=== PATIENT | female | born 1990 | race Caucasian/White ===

== ENCOUNTER 2016-12-09 18:18 | Emergency (ER) | payer BC ==
[~2016-12-09] VITALS: Ht 160 cm; Wt 134.0 kg
[~2016-12-09 18:18] MED LIST: ACID75TA6 PO; IBUP800T23 PO; LIPI20TA PO
[2016-12-09 18:22] VITALS: BP 115/77; PULSE 82; RESP 16; TEMP 98.2; O2SAT 98
[2016-12-09] MEDS ORDERED: OMEP40CA2 PO (18:31)
--- NOTE | 2016-12-09 18:47 | PD ---
HPI . Left lateral foot pain for a few hours Chief Complaint: Injury Time Seen by Provider: 18:47 Travel History International Travel<30 days: No Contact w/Intl Traveler<30days: No Traveled to known affect area: No History of Present Illness HPI 26-year-old female with history of hyperlipidemia and GERD here with complaints of left lateral foot pain. Her accident occurred about 3 PM today she was walking and took the wrong step forward and twisted her ankle. She is actually not complaining of ankle pain and actually complaining of left lateral foot pain. She does have some slight discoloration and limited range of motion. Pain is 8/10 with movement. She has no other complaints. She denies any loss of consciousness or syncopal episode. She is accompanied by her mother. PFSH Past Medical History High Cholesterol: Yes Diminished Hearing: No GERD: Yes Immunizations Current: Yes Tetanus Vaccination: < 5 Years Influenza Vaccination: No ?: Not LMP: 12/07/2016 Menopausal: No : 0 Para: 0 Miscarriage: 0 : 0 Past Surgical History Appendectomy: Yes Social History Alcohol Use: Yes (Occ.) Tobacco Use: No Substance Use: No Allergies-Medications (Allergen,Severity, Reaction): Coded Allergies: Penicillin (Verified Allergy, Severe, Rash, 12/09/16) Reported Meds & Prescriptions Reported Meds & Active Scripts Active Reported Omeprazole 40 Mg Cap 40 Mg PO DAILY Review of Systems General / Constitutional: No: Fever Eyes: No: Visual changes HENT: No: Headaches Cardiovascular: No: Chest Pain or Discomfort Respiratory: No: Shortness of Breath Gastrointestinal: No: Abdominal Pain Genitourinary: No: Dysuria Musculoskeletal: Positive: Pain (left foot pain) Skin: No Rash Neurologic: No: Weakness Psychiatric: No: Depression Endocrine: No: Polydipsia Hematologic/Lymphatic: No: Easy Bruising Physical Exam Narrative GENERAL: AAO x 3, no acute distress, Well-nourished, well-developed patient. SKIN: Warm and dry. No visible rashes or bruising. HEAD: Normocephalic and atraumatic. EYES: No scleral icterus. No injection or drainage. ENT: No nasal drainage noted. Mucous membranes pink. Airway patent. NECK: Supple, trachea midline. No JVD. CARDIOVASCULAR: Regular rate and rhythm without murmurs, gallops, or rubs. RESPIRATORY: Breath sounds equal bilaterally. No accessory muscle use. No rhonchi or rales. GASTROINTESTINAL: Abdomen soft, non-tender, nondistended. EXTREMITIES: No cyanosis or edema. + point tenderness to left lateral foot BACK: Nontender without obvious deformity. No CVA tenderness. PSYCH: AAO x 3, normal affect. Data Data Last Documented VS Vital Signs Date Time Temp Pulse Resp B/P Pulse Ox O2 Delivery O2 Flow Rate FiO2 12/09/16 18:22 98.2 82 16 115/77 98 Orders Foot, Limited (2vws) (12/09/16 18:51) Ibuprofen (Motrin) (12/09/16 19:15) MDM Medical Decision Making Medical Screen Exam Complete: Yes Emergency Medical Condition: Yes Medical Record Reviewed: Yes Differential Diagnosis Foot sprain, foot fracture, foot contusion Narrative Course 26-year-old female with history of hyperlipidemia and GERD here with complaints of left lateral foot pain. Her accident occurred about 3 PM today she was walking and took the wrong step forward and twisted her ankle. She is actually not complaining of ankle pain and actually complaining of left lateral foot pain. She does have some slight discoloration and limited range of motion. Pain is 8/10 with movement. She has no other complaints. She denies any loss of consciousness or syncopal episode. She is accompanied by her mother. Patient seen and examined. There is some left lateral foot tenderness. I will check an x-ray to make sure there is no acute fracture. I think this is more than likely a sprain. Patient given ibuprofen for pain control. Last 24 hours Impressions Foot X-Ray 12/09/16 6847 Signed Impressions: Service Date/Time: Friday, December 09, 2016 18:53 - CONCLUSION: Unremarkable limited examination of the left foot. Phillip Stauffer MD Patient verbalized understanding of instructions, questions were answered, and thanked me for their care. I advised them if their condition worsens, please return to the nearest emergency room for further care. Diagnosis Primary Impression: Sprain of foot, left Qualified Code: S93.602A - Sprain of foot, left, initial encounter Patient Instructions: Foot Sprain (ED), General Instructions Additional Instructions: Please return to emergency department if your symptoms return or worsen. Follow up with your primary care provider. Take medications as prescribed. Take Tylenol or Motrin as needed for pain. Med/Other Pt SpecificInfo: No Change to Meds Disposition: 01 DISCHARGE HOME Condition: Stable Olga Lovelace Dec 09, 2016 18:47
--- NOTE | 2016-12-09 19:08 | RADHPO ---
EXAM DATE/TIME: 12/09/2016 18:53 [facility] COMPARISON: No previous studies available for comparison. INDICATIONS : Left foot pain. Patient states she tripped today and missed a step. MEDICAL HISTORY : None. SURGICAL HISTORY : None. ENCOUNTER: Initial ACUITY: 1 day PAIN SCORE: 8/10 LOCATION: Left foot. FINDINGS: Two view examination of the left foot demonstrates no soft tissue swelling, dislocation, or fracture. The calcaneus is intact. Bony mineralization is normal. CONCLUSION: Unremarkable limited examination of the left foot. Phillip Stauffer MD on December 09, 2016 at 19:07 Board Certified Radiologist. This report was verified electronically.
[2016-12-09] MEDS ORDERED: IBUPROFEN 800 MG TAB PO ONE (19:15)
== END 2016-12-09 19:29 | disposition home or self-care (01) ==
LOC: PHEFT 18:18
DX: S93.602A Unspecified sprain of left foot, initial encounter (principal); E78.00 Pure hypercholesterolemia, unspecified; X50.1XXA Overexertion from prolonged static or awkward postures, initial encounter; Y99.8 Other external cause status
CPT/HCPCS: 73620; 99283; E0113

== ENCOUNTER 2017-01-12 13:51 | Emergency (ER) | payer BC ==
[~2017-01-12] VITALS: Ht 172.7 cm; Wt 137.0 kg
[~2017-01-12 13:51] MED LIST changes: -ACID75TA6 PO; -IBUP800T23 PO; -LIPI20TA PO; +OMEP40CA2 PO
[2017-01-12 13:59] VITALS: BP 135/89; PULSE 66; RESP 14; TEMP 98.1; O2SAT 96
--- NOTE | 2017-01-12 14:17 | PD ---
HPI Chief Complaint: GI Complaint Time Seen by Provider: 14:13 Travel History International Travel<30 days: No Contact w/Intl Traveler<30days: No Traveled to known affect area: No History of Present Illness HPI 26-year-old female came to the emergency room with multiple complains like nausea, craving salt, vomiting earlier this month, abdominal discomfort. Upon asking if she could be and she said there was a chance although her period started yesterday. Vital signs were completely stable. She otherwise claims to be a healthy person. Her next appointment with a primary care's next Sunday. Patient came here to be checked was going on. [facility] Past Medical History Narrative Medical List of her past medical, surgical, social and family history was reviewed from the nursing note. High Cholesterol: Yes Diminished Hearing: No GERD: Yes Immunizations Current: Yes Tetanus Vaccination: < 5 Years Influenza Vaccination: No ?: Unknown LMP: 01/11/17 Menopausal: No : 0 Para: 0 Miscarriage: 0 : 0 Past Surgical History Appendectomy: Yes Social History Alcohol Use: Yes (Occ.) Tobacco Use: No Substance Use: No Allergies-Medications (Allergen,Severity, Reaction): Coded Allergies: Penicillin (Verified Allergy, Severe, Rash, 01/12/17) Comments List of her allergies reviewed from the nursing note. Reported Meds & Prescriptions Reported Meds & Active Scripts Active Zofran Odt (Ondansetron Odt) 4 Mg Tab 4 Mg SL Q6HR PRN Narrative Medication List of her home medications reviewed from the nursing note. Review of Systems Except as stated in HPI: all other systems reviewed are Neg Physical Exam Narrative GENERAL: Awake, alert, morbidly obese, no obvious distress SKIN: Focused skin assessment warm/dry. HEAD: Atraumatic. Normocephalic. EYES: Pupils equal and round. No scleral icterus. No injection or drainage. ENT: No nasal bleeding or discharge. Mucous membranes pink and moist. NECK: Trachea midline. No JVD. CARDIOVASCULAR: Regular rate and rhythm. No murmur appreciated. RESPIRATORY: No accessory muscle use. Clear to auscultation. Breath sounds equal bilaterally. GASTROINTESTINAL: Abdomen soft, non-tender, nondistended. Hepatic and splenic margins not palpable. MUSCULOSKELETAL: No obvious deformities. No clubbing. No cyanosis. No edema. NEUROLOGICAL: Awake and alert. No obvious cranial nerve deficits. Motor grossly within normal limits. Normal speech. PSYCHIATRIC: Appropriate mood and affect; insight and judgment normal. Data Data Last Documented VS Orders Urinalysis - C+S If Indicated (01/12/17 14:25) Ed Urine Pregnancytest Poc (01/12/17 14:25) Labs [facility] Medical Decision Making Medical Screen Exam Complete: Yes Emergency Medical Condition: Yes Medical Record Reviewed: Yes Differential Diagnosis , dehydration Narrative Course 3:07 PM patient was negative for urine . UA report came back and within normal limit except for occult blood which could be from her period. I' m comfortable discharging her home. She has to follow up with her primary care next Sunday and if she still concerned could have outpatient blood work. Procedures EKG Prior to Arrival: No Diagnosis Primary Impression: Nausea Referrals: Primary Care Physician 1 week Additional Instructions: Please return to the ER if the condition worsens or any other new concerns. Otherwise follow-up with your primary care as per the appointment next week. Take the medication as per the prescription direction. Med/Other Pt SpecificInfo: Prescription(s) given Scripts Ondansetron Odt (Zofran Odt)4 Mg Tab4 Mg SL Q6HR PRN (Nausea/Vomiting) #15 TAB Ref 0 Prov:Vladimir Willett MD 01/12/17 Disposition: 01 DISCHARGE HOME Condition: Stable Vladimir Willett MD Jan 12, 2017 14:17 Urine Squamous Epithelial 0-5 /hpf Cells Microscopic Urinalysis Comment CULT NOT INDICATED [facility] Medical Decision Making Medical Screen Exam Complete: Yes Emergency Medical Condition: Yes Medical Record Reviewed: Yes Differential Diagnosis , dehydration Narrative Course 3:07 PM patient was negative for urine . UA report came back and within normal limit except for occult blood which could be from her period. I' m comfortable discharging her home. She has to follow up with her primary care next Sunday and if she still concerned could have outpatient blood work. Procedures EKG Prior to Arrival: No Diagnosis Primary Impression: Nausea Referrals: Primary Care Physician 1 week Additional Instructions: Please return to the ER if the condition worsens or any other new concerns. Otherwise follow-up with your primary care as per the appointment next week. Take the medication as per the prescription direction. Med/Other Pt SpecificInfo: Prescription(s) given Scripts Ondansetron Odt (Zofran Odt)4 Mg Tab4 Mg SL Q6HR PRN (Nausea/Vomiting) #15 TAB Ref 0 Prov:Vladimir Willett MD 01/12/17 Disposition: 01 DISCHARGE HOME Condition: Stable Vladimir Willett MD Jan 12, 2017 14:17
[2017-01-12 14:46] LABS: BLOOD, URINE LARGE (NEG); GLUCOSE,URINE NEG (NEG); KETONE, URINE NEG (NEG); NITRITE,URINE NEG (NEG); PH, URINE 6.5 (5.0-8.5)
[2017-01-12 14:59] LABS: URINE COLOR YELLOW (YELLW/STRAW)
[2017-01-12 15:00] LABS: COMMENT (UR) CULT NOT INDICATED; CULTURE IF INDICATED CULT NOT INDICATED; SQUAMOUS EPITHELIAL CELL URINE 0-5 /hpf (0-5)
[2017-01-12] MEDS ORDERED: ZOFR4TAB3 SL (15:09)
[2017-01-12 15:15] VITALS: BP 128/82; PULSE 68; RESP 16; O2SAT 95
== END 2017-01-12 15:15 | disposition home or self-care (01) ==
LOC: PHED 13:51
DX: R11.0 Nausea (principal); R10.9 Unspecified abdominal pain; E78.00 Pure hypercholesterolemia, unspecified; K21.9 Gastro-esophageal reflux disease without esophagitis
CPT/HCPCS: 81001; 84703; 99284

== ENCOUNTER 2017-02-12 11:04 | Emergency (ER) | payer BC ==
[~2017-02-12] VITALS: Ht 172.7 cm; Wt 136.8 kg
[~2017-02-12 11:04] MED LIST changes: -OMEP40CA2 PO; +ZOFR4TAB3 SL
[2017-02-12 11:08] VITALS: BP 129/61; PULSE 82; RESP 16; TEMP 98.4; O2SAT 98
--- NOTE | 2017-02-12 11:29 | PD ---
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 She states her last menstrual cycle was about the fifth of last month. She states she's having intermittent lower abdominal pain but denies other complaints. She is concerned she got an STD. Quality is white. Severity is 3 days. PFSH Past Medical History High Cholesterol: Yes Diminished Hearing: No GERD: Yes Immunizations Current: Yes Tetanus Vaccination: < 5 Years ?: Not LMP: 01/11/17 Menopausal: No : 0 Para: 0 Miscarriage: 0 : 0 Past Surgical History Appendectomy: Yes Social History Alcohol Use: Yes (Occ.) Tobacco Use: No Substance Use: No Allergies-Medications (Allergen,Severity, Reaction): Coded Allergies: Penicillin (Verified Allergy, Severe, Rash, 02/12/17) Reported Meds & Prescriptions Reported Meds & Active Scripts Active No Active Prescriptions or Reported Medications Review of Systems Except as stated in HPI: all other systems reviewed are Neg Physical Exam Narrative GENERAL: Well-nourished, well-developed patient. Well-appearing SKIN: Warm and dry. HEAD: Normocephalic and atraumatic. EYES: No injection or drainage. ENT: No nasal drainage noted. NECK: Supple, trachea midline. CARDIOVASCULAR: Regular rate and rhythm RESPIRATORY: No increased effort. No accessory muscle use. GASTROINTESTINAL: Abdomen soft, non-tender, nondistended. GENITOURINARY with cotton ginner after permission: Normal external genitalia without lesions or erythema. Vaginal vault small amount of white drainage. Cervical os was closed with small amount of white drainage. No cervical motion tenderness. Uterus nontender. Bilateral adnexa nontender NEUROLOGICAL: Awake and alert. Motor and sensory grossly within normal limits. Normal speech. Data Data Last Documented VS Vital Signs Date Time Temp Pulse Resp B/P Pulse Ox O2 Delivery O2 Flow Rate FiO2 02/12/17 11:08 98.4 82 16 129/61 98 Orders Urinalysis - C+S If Indicated (02/12/17 11:11) Ed Urine Pregnancytest Poc (02/12/17 11:11) Gc And Chlamydia Pcr (02/12/17 11:20) Wet Prep Profile (02/12/17 11:20) Azithromycin Powd Pack (Zithromax Powd P (02/12/17 11:30) Metronidazole (Flagyl) (02/12/17 12:00) Labs Laboratory Tests Test 02/12/17 02/12/17 11:15 11:20 Urine Collection Type VOIDED Urine Color YELLOW Urine Turbidity CLEAR Urine pH 7.5 Urine Specific [place] 1.020 Urine Protein NEG mg/dL Urine Glucose (UA) NEG mg/dL Urine Ketones NEG mg/dL Urine Occult Blood TRACE Urine Nitrite NEG Urine Bilirubin NEG Urine Leukocyte Esterase NEG Urine WBC 0-2 /hpf Urine Squamous Epithelial 0-5 /hpf Cells Urine Bacteria FEW /hpf Urine Trichomonas RARE Microscopic Urinalysis Comment CULT NOT INDICATED Clue Cells (Wet Prep) NONE SEEN Vaginal Trichomonas (Wet Prep) PRESENT Vaginal Yeast (Wet Prep) NONE SEEN MDM Medical Decision Making Medical Screen Exam Complete: Yes Emergency Medical Condition: Yes Medical Record Reviewed: Yes (past history confirmed) Interpretation(s) test is negative Trichomonas is positive UA without UTI Differential Diagnosis STD, UTI, cyst, Narrative Course Will check wet prep and gonorrhea and chlamydia, urinalysis, test is negative, will treat with 2 g of azithromycin given penicillin allergy to cover for gonorrhea and chlamydia and await other testing Trichomonas is positive, given Flagyl 2 g here, Patient denies any new complaints, all questions answered. Patient knows that follow up is incumbent on them and to return to the emergency room immediately if new or worsening symptoms develop. Patient given strict return precautions, vitals reviewed and are normal, agrees to further workup as an outpatient. 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
[2017-02-12] MEDS ORDERED: AZITHROMYCIN PWD FOR SUSP 1 GM PACKET PO ONE (11:30)
[2017-02-12 11:37] LABS: BLOOD, URINE TRACE (NEG); GLUCOSE,URINE NEG (NEG); KETONE, URINE NEG (NEG); NITRITE,URINE NEG (NEG); PH, URINE 7.5 (5.0-8.5)
[2017-02-12 11:43] LABS: METHOD OF COLLECTION VOIDED; URINE COLOR YELLOW (YELLW/STRAW)
[2017-02-12 11:44] LABS: BACTERIA, URINE FEW /hpf; COMMENT (UR) CULT NOT INDICATED; CULTURE IF INDICATED CULT NOT INDICATED; SQUAMOUS EPITHELIAL CELL URINE 0-5 /hpf (0-5); WBC, URINE 0-2 /hpf (0-5)
[2017-02-12] MEDS ORDERED: metroNIDAZOLE 500 MG TAB PO ONE (12:00)
[2017-02-12 16:00] LABS: CHLAMYDIA PCR NOT DETECTED (NOT DETECT); NEISSERIA PCR NOT DETECTED (NOT DETECT)
== END 2017-02-12 12:10 | disposition home or self-care (01) ==
LOC: PHED 11:04
DX: A59.01 Trichomonal vulvovaginitis (principal)
CPT/HCPCS: 81001; 84703; 87210; 87491; 87591; 99283

== ENCOUNTER 2017-05-07 13:15 | Emergency (ER) | payer SELFPAY ==
[~2017-05-07] VITALS: Ht 172.7 cm; Wt 139.0 kg
[2017-05-07 13:17] VITALS: BP 146/70; PULSE 72; RESP 16; TEMP 98.1; O2SAT 95
--- NOTE | 2017-05-07 14:34 | PD ---
HPI Chief Complaint: Lump, Cyst, Hernia Time Seen by Provider: 14:17 Travel History International Travel<30 days: No Contact w/Intl Traveler<30days: No Traveled to known affect area: No History of Present Illness HPI 26 yo female reports approx 1 day of left occipital scalp pain and swelling. She 's had generalized cephalgia since yesterday as well. The scalp area of swelling is slightly more tender on palpation. A generalized sensation of weakness and fatigue is reported. No fever/chills. Pt denies recent trauma or similar prior pain/lesions. PFSH Past Medical History High Cholesterol: Yes Diminished Hearing: No GERD: Yes Immunizations Current: Yes ?: Not Menopausal: No : 0 Para: 0 Miscarriage: 0 : 0 Past Surgical History Appendectomy: Yes Social History Alcohol Use: Yes (Occ.) Tobacco Use: No Substance Use: No Allergies-Medications (Allergen,Severity, Reaction): Coded Allergies: Penicillin (Verified Allergy, Severe, Rash, 02/12/17) Reported Meds & Prescriptions Reported Meds & Active Scripts Active No Active Prescriptions or Reported Medications Review of Systems Except as stated in HPI: all other systems reviewed are Neg General / Constitutional: No: Fever Physical Exam Narrative GENERAL: 26 yo F, WNWD, NAD, pleasant SKIN: Warm and dry. HEAD: Atraumatic. Normocephalic. Along the L occipital scalp there is an area of approximately 15mm of raised tissue. No erythema or fluctuance is observed. No warmth. There is trace TTP in the area. EYES: Pupils equal and round. No scleral icterus. No injection or drainage. ENT: No nasal bleeding or discharge. Mucous membranes pink and moist. NECK: Trachea midline. No JVD. CARDIOVASCULAR: Regular rate and rhythm. RESPIRATORY: No accessory muscle use. Clear to auscultation. Breath sounds equal bilaterally. GASTROINTESTINAL: Abdomen soft, non-tender, nondistended. Hepatic and splenic margins not palpable. MUSCULOSKELETAL: Extremities without clubbing, cyanosis, or edema. No obvious deformities. NEUROLOGICAL: Awake and alert. No obvious cranial nerve deficits. Motor grossly within normal limits. Five out of 5 muscle strength in the arms and legs. Normal speech. PSYCHIATRIC: Appropriate mood and affect; insight and judgment normal. Data Data Last Documented VS Vital Signs Date Time Temp Pulse Resp B/P Pulse Ox O2 Delivery O2 Flow Rate FiO2 05/07/17 14:44 70 16 136/70 96 Room Air 05/07/17 13:17 98.1 VS reviewed MDM Medical Decision Making Medical Screen Exam Complete: Yes Emergency Medical Condition: Yes Medical Record Reviewed: Yes Differential Diagnosis cellulitis, sebaceous cyst, abscess, follicular cyst, ganglion cyst, ingrown hair Narrative Course The area of swelling is very subtle, almost imperceptible if not for tenderness during the exam. In the absence of erythema warmth induration an infectious process is considered less likely. A cystic structure is not entirely excluded. With the lesion having been first noticed just yesterday etiology at this point is considered most likely benign. Unfortunately within seconds of the discussion of the diagnosis, or absence thereof, the patient's company said , "So we're just playing a guessing game. You came here for nothing." Pt's company was concerned that the scalp lesion may reflect an intracranial cyst. "So you're not going to do a CT scan" she states. We spent about five additional minutes discussing potential diagnoses and symptoms c/w intracranial mass. The patient and company were ultimately offered a CT scan of the brain however it was stated that in so doing no added diagnostic benefit would be expected. The patient elected to defer the head CT. Return precautions discussed in detail. Unfortunately one of the company's relative's had a intracranial cystic structure that was undiagnosed after a few visits and a high degree of skepticism accompanied the patient's visit. Unfortunately patient and company may be unsatisfied with this visit despite all reasonable attempts provide appropriate care while meeting their expectations. Diagnosis Primary Impression: Superficial swelling of scalp Referrals: Primary Care Physician 2 days Additional Instructions: PLEASE RETURN TO THE ER IF YOU DEVELOP FEVER OR IF THE AREA OF SWELLING INCREASES IN SIZE, BECOMES WARM/HOT TO TOUCH OR MORE PAINFUL. PLEASE BE ADVISED THE AN INTRACRANIAL MASS OR CYST WOULD CAUSE SEIZURES AND/OR A FOCAL MOTOR WEAKNESS IN ADDITION TO CHRONIC HEADACHES, WHICH WOULD MOST LIKELY BE WORSE IN THE MORNINGS. You have a choice when it comes to health care, and we are glad that you chose [facility]. Hopefully, we have met your expectations on today's visit. You are welcome to return to [facility] at any time, as we are committed to meeting the health care needs of our community. Med/Other Pt SpecificInfo: No Change to Meds Scripts No Active Prescriptions or Reported Meds Disposition: 01 DISCHARGE HOME Condition: Stable Oswaldo Garcia MD May 07, 2017 14:34
[2017-05-07 14:44] VITALS: BP 136/70; PULSE 70; RESP 16; O2SAT 96
== END 2017-05-07 14:43 | disposition home or self-care (01) ==
LOC: PHED 13:15
DX: R22.0 Localized swelling, mass and lump, head (principal); R51 Headache; R53.1 Weakness; R53.83 Other fatigue; E78.00 Pure hypercholesterolemia, unspecified; Z87.19 Personal history of other diseases of the digestive system
CPT/HCPCS: 99282

== ENCOUNTER 2017-07-25 16:14 | Emergency (ER) | payer SELFPAY ==
[~2017-07-25] VITALS: Ht 172.7 cm; Wt 137.9 kg
[2017-07-25 16:28] VITALS: BP 134/63; PULSE 97; RESP 16; TEMP 99.1; O2SAT 98
[2017-07-25 17:37] LABS: BLOOD, URINE TRACE (NEG); GLUCOSE,URINE NEG (NEG); KETONE, URINE NEG (NEG); NITRITE,URINE NEG (NEG)
[2017-07-25 17:46] LABS: URINE COLOR YELLOW (YELLW/STRAW)
[2017-07-25 17:47] LABS: MUCUS URINE FEW /lpf (OCC)
[2017-07-25 17:48] LABS: COMMENT (UR) CULT NOT INDICATED; CULTURE IF INDICATED CULT NOT INDICATED; RBC, URINE 0-3 /hpf (0-3); SQUAMOUS EPITHELIAL CELL URINE > 8 /hpf (0-5); WBC, URINE 0-2 /hpf (0-5)
[2017-07-25] MEDS ORDERED: CLIN1CAP6 PO (18:14)
--- NOTE | 2017-07-25 18:15 | PD ---
HPI . Upper respiratory symptoms Chief Complaint: Cold / Flu Symptoms Time Seen by Provider: 16:41 Travel History International Travel<30 days: No Contact w/Intl Traveler<30days: No Traveled to known affect area: No History of Present Illness HPI 27-year-old female presents to emergency department for evaluation of right- sided earache 3-4 days, body aches, sore throat and malaise. Patient is unsure she's been running any fevers but feels chills and malaise. Patient does not take any daily medication. She has no major medical history except for frequent bouts of strep throat. Patient denies any cough, shortness of breath, chest pain, abdominal pain, nausea, vomiting or diarrhea. However patient states she's been experiencing dysuria for a couple days. PFSH Past Medical History Medical History: Denies Significant Hx High Cholesterol: Yes Diminished Hearing: No GERD: Yes Immunizations Current: Yes Tetanus Vaccination: < 5 Years Influenza Vaccination: No ?: Not LMP: 07/05/17 Menopausal: No : 0 Para: 0 Miscarriage: 0 : 0 Past Surgical History Appendectomy: Yes Social History Alcohol Use: Yes (Occ.) Tobacco Use: No Substance Use: No Allergies-Medications (Allergen,Severity, Reaction): Coded Allergies: penicillin G (Unverified Allergy, Severe, Rash, 07/25/17) Reported Meds & Prescriptions Reported Meds & Active Scripts Active No Active Prescriptions or Reported Medications Review of Systems Except as stated in HPI: all other systems reviewed are Neg Physical Exam Narrative GENERAL: Well-nourished, well-developed 27-year-old female patient in no acute distress. SKIN: Focused skin assessment warm/dry. HEAD: Normocephalic. Atraumatic. EYES: No scleral icterus. No injection or drainage. ENT: Mucosa pink and moist. Airway patent. Nasal turbinates appear mildly hypertrophic without nasal blood, purulent drainage or septal hematoma. EARS: Bilateral pinnae and external canals appear within normal limits. Bilateral tympanic membranes mildly erythematous without dullness or perforation. THROAT: Significant pharyngeal injection, exudates and tonsillar hypertrophy. Airway is patent. NECK: Supple, trachea midline. No JVD or lymphadenopathy. CARDIOVASCULAR: Regular rate and rhythm without murmurs, gallops, or rubs. RESPIRATORY: Breath sounds equal bilaterally. No accessory muscle use. GASTROINTESTINAL: Abdomen soft, non-tender, nondistended. MUSCULOSKELETAL: No cyanosis, or edema. BACK: Nontender without obvious deformity. No CVA tenderness. Data Data Last Documented VS Vital Signs Date Time Temp Pulse Resp B/P (MAP) Pulse Ox O2 Delivery O2 Flow Rate FiO2 07/25/17 16:28 99.1 97 16 134/63 (86) 98 Orders Orders Group A Rapid Strep Screen (07/25/17 16:52) Urinalysis - C+S If Indicated (07/25/17 17:11) Labs Laboratory Tests Test 07/25/17 17:12 Urine Color YELLOW Urine Turbidity SLIGHT Urine pH 6.0 Urine Specific [place] 1.034 Urine Protein TRACE mg/dL Urine Glucose (UA) NEG mg/dL Urine Ketones NEG mg/dL Urine Occult Blood TRACE Urine Nitrite NEG Urine Bilirubin NEG Urine Leukocyte Esterase NEG Urine RBC 0-3 /hpf Urine WBC 0-2 /hpf Urine Squamous Epithelial Cells > 8 /hpf Urine Mucus FEW /lpf Microscopic Urinalysis Comment CULT NOT INDICATED MDM Medical Decision Making Medical Screen Exam Complete: Yes Emergency Medical Condition: Yes Differential Diagnosis The frontal diagnoses include but not limited to upper respiratory infection, otitis media, sinusitis, pharyngitis, tonsillitis Narrative Course 27-year-old female presents emergency department for evaluation of sore throat, right earache and dysuria for a couple days. Rapid strep and UA ordered and pending. Rapid strep is positive. UA shows no acute abnormality. Patient will be discharged home with antibiotics for strep throat and instructions to follow-up with the primary care. Diagnosis Primary Impression: Streptococcal pharyngitis Patient Instructions: General Instructions, Pharyngitis (ED) Additional Instructions: Please return to emergency department if your symptoms return or worsen. Follow up with your primary care provider. Take medications as prescribed. Med/Other Pt SpecificInfo: Prescription(s) given Scripts Clindamycin (Clindamycin) 300 Mg Cap 300 MG PO TID for Infection for 10 Days, #21 CAP 0 Refills Prov: DebbieVaishnavi 07/25/17 Disposition: 01 DISCHARGE HOME Condition: Stable Vaishnavi Lewis Jul 25, 2017 18:15
== END 2017-07-25 18:32 | disposition home or self-care (01) ==
LOC: PHEFT 16:14
DX: J02.0 Streptococcal pharyngitis (principal); B95.0 Streptococcus, group A, as the cause of diseases classified elsewhere; R30.0 Dysuria
CPT/HCPCS: 81001; 87880; 99283

== ENCOUNTER 2017-11-05 19:33 | Emergency (ER) | payer SELFPAY ==
[~2017-11-05] VITALS: Ht 172.7 cm; Wt 145.0 kg
[~2017-11-05 19:33] MED LIST changes: +CLIN300C5 PO; -ZOFR4TAB3 SL
[2017-11-05 20:35] VITALS: BP 152/68; PULSE 95; RESP 18; TEMP 100; O2SAT 97
[2017-11-05 22:09] VITALS: TEMP 102.5
--- NOTE | 2017-11-05 22:27 | PD ---
HPI Chief Complaint: Cold / Flu Symptoms Time Seen by Provider: 21:59 Travel History International Travel<30 days: No Contact w/Intl Traveler<30days: No Traveled to known affect area: No History of Present Illness HPI The patient is a 27-year-old female that complains of a cough, congestion and sore throat for 2 days. The patient has a low-grade fever at home. She does have some myalgias with an 8/10 in pain. She does have some nausea without vomiting. She denies any diarrhea. She does not smoke. PFSH Past Medical History High Cholesterol: Yes Diminished Hearing: No GERD: Yes Immunizations Current: Yes Sleep Apnea: Yes Tetanus Vaccination: < 5 Years Influenza Vaccination: No ?: Not LMP: 1-18 Menopausal: No : 0 Para: 0 Miscarriage: 0 : 0 Past Surgical History Appendectomy: Yes Social History Alcohol Use: Yes (Occ.) Tobacco Use: No Substance Use: No Allergies-Medications (Allergen,Severity, Reaction): Coded Allergies: penicillin G (Unverified Allergy, Severe, Rash, 11/05/17) Reported Meds & Prescriptions Reported Meds & Active Scripts Active No Active Prescriptions or Reported Medications Review of Systems Except as stated in HPI: all other systems reviewed are Neg Physical Exam Narrative GENERAL: Well-nourished, alert and oriented, obese patient in no respiratory distress. Repeated temperature is 102.5 and the blood pressure 152/68 but the rest the vital signs are normal.. SKIN: Focused skin assessment warm/dry. No skin rash is seen. HEAD: Normocephalic. EYES: No scleral icterus. No injection or drainage. NECK: Supple, trachea midline. No JVD or lymphadenopathy. CARDIOVASCULAR: Regular rate and rhythm without murmurs, gallops, or rubs. RESPIRATORY: Breath sounds equal bilaterally. No accessory muscle use. Scattered wheezes are heard bilaterally. GASTROINTESTINAL: Abdomen soft, non-tender, nondistended. MUSCULOSKELETAL: No cyanosis, or edema. BACK: Nontender without obvious deformity. No CVA tenderness. ENT: The tympanic membranes are clear and the throat is slightly red without exudate or abscess. Data Data Last Documented VS Vital Signs Date Time Temp Pulse Resp B/P (MAP) Pulse Ox O2 Delivery O2 Flow Rate FiO2 11/05/17 22:09 102.5 11/05/17 20:35 95 18 152/68 (96) 97 Orders Orders Influenzae A/B Antigen (11/05/17 21:56) Chest, Pa & Lat (11/05/17 22:17) Acetaminophen (Tylenol) (11/05/17 22:30) Ketorolac Inj (Toradol Inj) (11/05/17 22:30) MDM Medical Decision Making Medical Screen Exam Complete: Yes Emergency Medical Condition: Yes Medical Record Reviewed: Yes Interpretation(s) The chest x-ray shows no acute cardiopulmonary disease. The influenza A/B antigen is negative for flu a and flu B antigen. Differential Diagnosis Viral upper respiratory infection, pneumonia, bronchitis, flu syndrome Narrative Course The patient appears to have a viral upper respiratory infection. The flu test is negative and she has not have a pneumonia. She does have bronchospasm and likely has a bronchitis. The bronchospasm is minimal. Diagnosis Primary Impression: Bronchitis with bronchospasm Additional Instructions: The cough syrup as 10 cc every 4-6 hours as needed. It can make you sleepy and sometimes can make you nauseated. The Compazine is for nausea and it can make you sleepy as well. Both the cough syrup and the Compazine helped the cough. Med/Other Pt SpecificInfo: Prescription(s) given Scripts Mhdhnrzyqtrnnsu-Trbaaab-Zzegohyhhov Liq (Guaifenesin DAC Liq) 30-10-100 Mg/5 Ml Soln 10 ML PO Q4H Y for COUGH AND/OR COLD SYMPTOMS, #1 BOTTLE 0 Refills Prov: Rainer Pisano MD 11/05/17 Prochlorperazine Maleate (Prochlorperazine Maleate) 10 Mg Tab 10 MG PO Q6H Y for NAUSEA OR VOMITING, #30 TAB 0 Refills Prov: Rainer Pisano MD 11/05/17 Disposition: 01 DISCHARGE HOME Condition: Stable Rainer Pisano MD Nov 05, 2017 22:27
[2017-11-05] MEDS ORDERED: ACETAMINOPHEN 325 MG TAB PO ONE (22:30)
[2017-11-05] MEDS ORDERED: KETOROLAC TROMETHAMINE 60 MG/2 ML (IM) VIAL IM ONE (22:30)
--- NOTE | 2017-11-05 22:48 | RADRPT ---
EXAM DATE/TIME: 11/05/2017 22:30 [facility] COMPARISON: No previous studies available for comparison. INDICATIONS : Fever, cough. MEDICAL HISTORY : None. SURGICAL HISTORY : None. ENCOUNTER: Initial ACUITY: 2 days PAIN SCORE: 0/10 LOCATION: Bilateral chest FINDINGS: The heart and mediastinal structures are normal. The pulmonary vascular pattern is normal.. The lungs are clear. CONCLUSION: No acute cardiopulmonary disease. Scott Wilson MD on November 05, 2017 at 22:44 Board Certified Radiologist. This report was verified electronically.
[2017-11-05] MEDS ORDERED: GUAISOL PO (23:31)
[2017-11-05] MEDS ORDERED: PROC10TA PO (23:31)
[2017-11-05] MEDS ORDERED: PROCHLORPERAZINE MALEATE 10 MG TAB PO ONE (23:45)
[2017-11-05] MEDS ORDERED: guaiFENesin/CODEINE SYRUP 200 MG/20 MG/10 ML CUP PO ONE (23:45)
== END 2017-11-06 00:15 | disposition home or self-care (01) ==
LOC: PHED 19:33 → PHEFT 11-06 00:15
DX: J40 Bronchitis, not specified as acute or chronic (principal); E78.00 Pure hypercholesterolemia, unspecified; K21.9 Gastro-esophageal reflux disease without esophagitis
CPT/HCPCS: 71046; 87804; 96372; 99284; J1885; Q0164

== ENCOUNTER 2018-02-25 07:48 | Emergency (ER) | payer SELFPAY ==
[~2018-02-25] VITALS: Ht 172.7 cm; Wt 145.0 kg
[~2018-02-25 07:48] MED LIST changes: -CLIN300C5 PO; +GUAISOL PO; +PROC10TA PO
[2018-02-25 07:52] VITALS: BP 140/83; PULSE 76; RESP 16; TEMP 97.6; O2SAT 98
[2018-02-25] MEDS ORDERED: SULF1SOL4 RIGHT EYE (08:20)
--- NOTE | 2018-02-25 08:20 | PD ---
HPI Chief Complaint: Eye Problems/Injury Time Seen by Provider: 08:10 Travel History International Travel<30 days: No Contact w/Intl Traveler<30days: No Traveled to known affect area: No History of Present Illness HPI This 27-year-old female is complaining of redness of her right eye. Her eye has been red for about a day. She has had some symptoms of allergy. She had a upper respiratory infection last week. She does not wear contacts. She had some drainage in the eye this morning. The left eye is not affected. PFSH Past Medical History High Cholesterol: Yes Diminished Hearing: No GERD: Yes Immunizations Current: Yes Sleep Apnea: Yes Tetanus Vaccination: > 5 Years Influenza Vaccination: No ?: Not LMP: 02/23/18 Menopausal: No : 0 Para: 0 Miscarriage: 0 : 0 Past Surgical History Appendectomy: Yes Social History Alcohol Use: Yes ("Rare") Tobacco Use: No Substance Use: No Allergies-Medications (Allergen,Severity, Reaction): Coded Allergies: penicillin G (Unverified Allergy, Severe, Rash, 02/25/18) Reported Meds & Prescriptions Reported Meds & Active Scripts Active No Active Prescriptions or Reported Medications Review of Systems General / Constitutional: No: Fever, Chills Eyes: Positive: Blurred Vision, Redness, Tearing HENT: No: Headaches, Vertigo Cardiovascular: No: Chest Pain or Discomfort Respiratory: No: Cough, Shortness of Breath Skin: No Rash Neurologic: No: Weakness Physical Exam Narrative GENERAL: Well developed female SKIN: Focused skin assessment warm/dry. HEAD: Atraumatic. Normocephalic. EYES: Pupils equal and round. There is conjunctival injection of the right eye with small amount of purulence corner of the eye. Anterior chamber is clear ENT: No nasal bleeding or discharge. Mucous membranes pink and moist. NECK: Trachea midline. No JVD. MUSCULOSKELETAL: No obvious deformities. No clubbing. No cyanosis. No edema. NEUROLOGICAL: Awake and alert. No obvious cranial nerve deficits. Motor grossly within normal limits. Normal speech. PSYCHIATRIC: Appropriate mood and affect; insight and judgment normal. Data Data Last Documented VS Vital Signs Date Time Temp Pulse Resp B/P (MAP) Pulse Ox O2 Delivery O2 Flow Rate FiO2 02/25/18 07:52 97.6 76 16 140/83 (102) 98 MDM Medical Decision Making Medical Screen Exam Complete: Yes Emergency Medical Condition: Yes Medical Record Reviewed: Yes Differential Diagnosis Differential includes allergic conjunctivitis, viral conjunctivitis, Narrative Course Patient will be put on sulfacetamide eyedrops Diagnosis Primary Impression: Acute conjunctivitis of right eye Scripts Sulfacetamide Opth Drops (Bleph-10 Opth Drops) 10 % Soln 1 DROP RIGHT EYE Q2H for Infection, #1 BOTTLE 0 Refills Prov: Serafin Velez MD 02/25/18 Disposition: 01 DISCHARGE HOME Condition: Stable Serafin Velez MD February 25, 2018 08:20
== END 2018-02-25 08:30 | disposition home or self-care (01) ==
LOC: PHED 07:48
DX: H10.31 Unspecified acute conjunctivitis, right eye (principal); Z88.0 Allergy status to penicillin
CPT/HCPCS: 99283

== ENCOUNTER 2018-03-25 09:37 | Emergency (ER) | payer SELFPAY ==
[~2018-03-25] VITALS: Ht 172.7 cm; Wt 146.6 kg
[~2018-03-25 09:37] MED LIST changes: -GUAISOL PO; -PROC10TA PO; +SULF1SOL4 RIGHT EYE
[2018-03-25 09:41] VITALS: BP 164/74; PULSE 87; RESP 16; TEMP 98; O2SAT 97
[2018-03-25] MEDS ORDERED: FURO20TA PO (09:52)
[2018-03-25] MEDS ORDERED: OMEP10CA PO (09:52)
[2018-03-25] MEDS ORDERED: ERYTOIN10 RIGHT EYE (10:23)
--- NOTE | 2018-03-25 10:23 | PD ---
HPI Chief Complaint: Skin Problem Time Seen by Provider: 09:54 Travel History International Travel<30 days: No Contact w/Intl Traveler<30days: No Traveled to known affect area: No History of Present Illness HPI 27-year-old female here with right eye irritation since this morning. She reports she used a eucalyptus essential oil spray on her pillowcase last night before she went to bed. She believes she is having an allergic reaction or irritation to the spring. No oral airway swelling. No wheezing. Irritation and swelling is localized to the right eye only. No visual acuity changes. Symptom severity is mild. She has not attempted any medications for symptom relief. [facility] Past Medical History Medical History: Denies Significant Hx High Cholesterol: Yes Diminished Hearing: No GERD: Yes Medical other: Yes ([employer]) Immunizations Current: Yes Sleep Apnea: Yes Influenza Vaccination: No ?: Not LMP: 02/23/18 Menopausal: No : 0 Para: 0 Miscarriage: 0 : 0 Past Surgical History Appendectomy: Yes Social History Alcohol Use: Yes (OCCASIONAL) Tobacco Use: No Substance Use: No Allergies-Medications (Allergen,Severity, Reaction): Coded Allergies: penicillin G (Verified Allergy, Severe, Rash, 03/25/18) Reported Meds & Prescriptions Reported Meds & Active Scripts Active Reported Omeprazole 10 Mg Cap Unknown Dose PO DAILY Furosemide 20 Mg Tab Unknown Dose PO DAILY Review of Systems Except as stated in HPI: all other systems reviewed are Neg General / Constitutional: No: Fever Eyes: Positive: Redness, No: Visual changes HENT: No: Headaches Cardiovascular: No: Chest Pain or Discomfort Respiratory: No: Shortness of Breath Gastrointestinal: No: Abdominal Pain Genitourinary: No: Dysuria Musculoskeletal: No: Pain Skin: No Rash Physical Exam Narrative GENERAL: Alert and well-appearing 27-year-old female SKIN: Warm and dry. HEAD: Normocephalic. EYES: Mild injection of the right eye. There is mild erythema and swelling to the upper lid. Pupils equal, round, reactive to light. EOMs intact. Visual acuity intact. NECK: Supple ENT: No oral airway swelling. Uvula is midline. Airways patent. Normal phonation. CARDIOVASCULAR: Regular rate and rhythm RESPIRATORY: Breath sounds equal bilaterally. No accessory muscle use. No wheezing, rales, rhonchi. Data Data Last Documented VS Vital Signs Date Time Temp Pulse Resp B/P (MAP) Pulse Ox O2 Delivery O2 Flow Rate FiO2 03/25/18 09:41 98.0 87 16 164/74 (104) 97 MDM Medical Decision Making Medical Screen Exam Complete: Yes Emergency Medical Condition: Yes Differential Diagnosis Allergic conjunctivitis, bacterial conjunctivitis, stye formation Narrative Course 19-year-old female here with mild right eye irritation after using new eucalyptus essential oils spray on her pillowcase last night. This appears to be mild irritation to the essential oil versus conjunctivitis. She was instructed to discontinue use of the spray. Wash pillowcases. Benadryl. Erythromycin ophthalmic ointment to cover bacterial cause. Diagnosis Primary Impression: Conjunctivitis Qualified Codes: H10.31 - Unspecified acute conjunctivitis, right eye Referrals: Primary Care Physician Additional Instructions: Benadryl 25-50 mg every 6 hours as needed for itching. Discontinue use of the eucalyptus spray. Wash her pillowcases. Scripts Erythromycin Opth Oint (Erythromycin Opth Oint) 5 Mg/Gm Oint 1 APPLIC RIGHT EYE BID for Infection, #1 TUBE 0 Refills Prov: Blanca Bangura 03/25/18 Disposition: 01 DISCHARGE HOME Condition: Stable Blanca Bangura Mar 25, 2018 10:23
== END 2018-03-25 10:33 | disposition home or self-care (01) ==
LOC: PHEFT 09:37
DX: H10.31 Unspecified acute conjunctivitis, right eye (principal); Z88.0 Allergy status to penicillin
CPT/HCPCS: 99283